=== PATIENT | female | born 1940 | race Two or more races ===

== ENCOUNTER → 2017-04-26 | Outpatient (CLI) | payer MEDICARE, MEDICAID ==
[~2017-04-26] MED LIST: INVANZ IV
== END | disposition home or self-care (01) ==
LOC: Rad HDHVI 12:03
PROVIDERS: ATTEND Internal Medicine Cardiovascular Disease
DX: I08.0 Rheumatic disorders of both mitral and aortic valves (principal)
CPT/HCPCS: 93306

== ENCOUNTER → 2017-04-27 | Outpatient (CLI) | payer MEDICARE, MEDICAID ==
[~2017-04-27] MED LIST changes: +ADENOSINE 69 MG in GIVE UN-DILUTED 0 ML IV ONE; +ADENOSINE 90 MG/30 ML INJ IV ONE
[2017-04-27 13:00] VITALS: BP 169/67
== END | disposition home or self-care (01) ==
LOC: Rad HDHVI 10:34
PROVIDERS: ATTEND Internal Medicine Cardiovascular Disease
DX: I50.43 Acute on chronic combined systolic (congestive) and diastolic (congestive) heart failure (principal); I25.10 Atherosclerotic heart disease of native coronary artery without angina pectoris; I73.9 Peripheral vascular disease, unspecified; R06.02 Shortness of breath; Z95.0 Presence of cardiac pacemaker
CPT/HCPCS: 78452; 93005; 96374; 96375; A9500; G0463; J0153

== ENCOUNTER 2018-03-02 16:22 | Inpatient (IN) | payer MEDICARE, MEDICAID ==
[~2018-03-02] VITALS: Ht 162.6 cm; Wt 82.8 kg
[~2018-03-02 16:22] MED LIST changes: -ADENOSINE 69 MG in GIVE UN-DILUTED 0 ML IV ONE; -ADENOSINE 90 MG/30 ML INJ IV ONE
[2018-03-02 17:15] LABS: Basophils # (auto) 0 uL; Basophils % (auto) 0.6 % (0.0-2.0); Eosinophils # (auto) 0.1 uL; Eosinophils % (auto) 1.8 % (0.0-7.0); Hematocrit 29.4 % (36.0-46.0); Hemoglobin 9.5 g/dL (12.2-16.2); Lymphocytes # (auto) 0.8 uL; Lymphocytes % (auto) 16.7 % (10.0-50.0); Mean Corpuscular Hemoglobin 31.7 pg (28.0-32.0); Mean Corpuscular Hgb Conc. 32.4 g/dL (32.0-36.0); Monocytes # (auto) 0.3 uL; Monocytes % (auto) 7.5 % (0.0-12.0); Neutrophils # (auto) 3.4 uL; Neutrophils % (auto) 73.4 % (37.0-80.0); Platelet Count (auto) 240 10^3/uL (140-450); Red Cell Distribution Width 16.3 % (11.8-14.3); White Blood Cell 4.6 10^3/uL (4.4-10.8)
[2018-03-02 17:32] LABS: Alanine Aminotransferase 20 U/L (13-56); Albumin 2.5 g/dL (3.4-5.0); Alkaline Phosphatase 127 U/L (45-117); Anion Gap 9 (5-15); Aspartate Aminotransferase 17 U/L (15-37); BUN/Creatinine Ratio 14.9; Bilirubin, Total 0.4 mg/dL (0.2-1.0); Calcium 7.2 mg/dL (8.5-10.1); Carbon Dioxide 29 mmol/L (21-32); Chloride 98 mmol/L (98-107); GFR African American 8 mL/min; GFR Non-African American 7 mL/min; Glucose 205 mg/dL (74-106); Potassium 4.3 mmol/L (3.5-5.1); Sodium 136 mmol/L (136-145); Total Protein 7.1 g/dL (6.4-8.2)
[2018-03-02 17:39] LABS: Blood Urea Nitrogen 97 mg/dL (7-18)
[2018-03-02] MEDS ORDERED: ONDANSETRON HCL 4 MG/2 ML VIAL IV PRN (20:45)
[2018-03-02] MEDS ORDERED: HYDROcodone-ACET 5/325MG TAB PO PRN (20:45)
[2018-03-02] MEDS ORDERED: TEMAZEPAM 15 MG CAP PO PRN (20:45)
[2018-03-02] MEDS ORDERED: MORPHINE SULF INJ 2 MG/ML SYRINGE 1ML IV PRN (20:45)
[2018-03-02] MEDS ORDERED: ACETAMINOPHEN 325 MG TAB PO PRN (20:45)
[2018-03-02] MEDS ORDERED: DEXTROSE (50%) 50ML SYRG IV PRN (20:45)
[2018-03-02] MEDS ORDERED: NITROGLYCERIN 0.4 MG SL TAB SL PRN (20:45)
[2018-03-02] MEDS ORDERED: DOCUSATE SOD 100 MG CAP PO PRN (20:45)
[2018-03-02] MEDS: CARVEDILOL 3.125 MG TAB PO SCH (22:00)
[2018-03-02 22:30] VITALS: BP 104/47
[2018-03-03] MEDS: ACCU-CHEK COMFORT CURVE STRIP VI SCH ×4 (00:43→17:21)
[2018-03-03] MEDS ORDERED: B-COTAB10 OR (03:50)
[2018-03-03] MEDS ORDERED: ALLO100T PO (03:50)
[2018-03-03] MEDS ORDERED: LOSA-46 PO (03:50)
[2018-03-03] MEDS ORDERED: LEVO200T7 PO (03:50)
[2018-03-03] MEDS ORDERED: BUME2TAB3 PO (03:50)
[2018-03-03] MEDS ORDERED: CLON0.1T PO (03:50)
[2018-03-03] MEDS ORDERED: SERT-274 PO (03:50)
[2018-03-03] MEDS ORDERED: METO-158 PO (03:50)
[2018-03-03] MEDS ORDERED: INSLISPI SC (03:50)
[2018-03-03] MEDS ORDERED: ACET-1156 PO (03:50)
[2018-03-03] MEDS ORDERED: PANT40TA2 PO (03:50)
[2018-03-03] MEDS ORDERED: AMINLIQ64 PO (03:50)
[2018-03-03 05:11] VITALS: BP 107/41
[2018-03-03] MEDS: InsuLIN REG 1unit/0.01ml Soln (100units/ml) SC SCH ×4 (06:00→17:20)
[2018-03-03] MEDS: BUMETANIDE 1 MG TAB PO SCH ×2 (06:00→17:32)
[2018-03-03] MEDS: LEVOTHYROXINE SODIUM 112 MCG TAB PO SCH (06:17)
[2018-03-03] MEDS: LEVOTHYROXINE SODIUM 25 MCG TAB PO SCH (06:18)
[2018-03-03 06:32] LABS: Basophils # (auto) 0 uL; Basophils % (auto) 0.8 % (0.0-2.0); Eosinophils # (auto) 0.2 uL; Eosinophils % (auto) 4.1 % (0.0-7.0); Hemoglobin 8.8 g/dL (12.2-16.2); Lymphocytes % (auto) 23.7 % (10.0-50.0); Mean Corpuscular Hemoglobin 32.1 pg (28.0-32.0); Mean Corpuscular Hgb Conc. 32.6 g/dL (32.0-36.0); Mean Corpuscular Volume 98.4 fL (80.0-100.0); Monocytes # (auto) 0.3 uL; Monocytes % (auto) 7.5 % (0.0-12.0); Neutrophils # (auto) 2.8 uL; Neutrophils % (auto) 63.9 % (37.0-80.0); Nucleated Red Blood Cells % 0.1 %; Platelet Count (auto) 222 10^3/uL (140-450); Red Blood Cells 2.74 10^6/uL (4.0-5.20); White Blood Cell 4.4 10^3/uL (4.4-10.8)
[2018-03-03 06:57] LABS: Albumin 2.4 g/dL (3.4-5.0); Calcium 7.3 mg/dL (8.5-10.1); Potassium 4.7 mmol/L (3.5-5.1)
[2018-03-03 07:00] LABS: Bilirubin, Total 0.4 mg/dL (0.2-1.0); Total Protein 6.7 g/dL (6.4-8.2)
[2018-03-03 07:37] LABS: BUN/Creatinine Ratio 14.7
[2018-03-03 08:00] VITALS: BP 94/44
[2018-03-03] MEDS: CLOPIDOGREL BISULFATE 75 MG TAB PO SCH (09:34)
[2018-03-03] MEDS: PANTOPRAZOLE 40 MG TAB PO SCH (09:34)
[2018-03-03] MEDS: ALLOPURINOL 100 MG TAB PO SCH (09:34)
[2018-03-03] MEDS: CARVEDILOL 3.125 MG TAB PO SCH ×2 (09:41→22:00)
[2018-03-03] MEDS: ENOXAPARIN SOD 100 MG/1 ML SYRINGE SC SCH (09:41)
[2018-03-03] MEDS: LOSARTAN POTASSIUM 50 MG TAB PO SCH (09:41)
[2018-03-03 13:00] VITALS: BP 95/40
[2018-03-03 16:00] VITALS: BP 96/49
[2018-03-03] MEDS ORDERED: EPOETIN ALFA 10,000 UNIT/1 ML VIAL IV ONE (16:00)
[2018-03-03 17:00] VITALS: BP 100/45
[2018-03-03 22:00] VITALS: BP 105/40
[2018-03-04] MEDS: InsuLIN REG 1unit/0.01ml Soln (100units/ml) SC SCH ×4 (00:35→17:35)
[2018-03-04] MEDS: ACCU-CHEK COMFORT CURVE STRIP VI SCH ×4 (00:35→17:35)
[2018-03-04 04:39] VITALS: BP 101/44
[2018-03-04] MEDS: BUMETANIDE 1 MG TAB PO SCH ×2 (05:59→17:34)
[2018-03-04] MEDS: LEVOTHYROXINE SODIUM 25 MCG TAB PO SCH (06:00)
[2018-03-04] MEDS: LEVOTHYROXINE SODIUM 112 MCG TAB PO SCH (06:00)
[2018-03-04 08:44] VITALS: BP 107/51
[2018-03-04] MEDS: CARVEDILOL 3.125 MG TAB PO SCH ×2 (10:00→21:22)
[2018-03-04] MEDS: ALLOPURINOL 100 MG TAB PO SCH (10:29)
[2018-03-04] MEDS: LOSARTAN POTASSIUM 50 MG TAB PO SCH (10:29)
[2018-03-04] MEDS: PANTOPRAZOLE 40 MG TAB PO SCH (10:29)
[2018-03-04] MEDS: ENOXAPARIN SOD 100 MG/1 ML SYRINGE SC SCH (10:30)
[2018-03-04] MEDS: CLOPIDOGREL BISULFATE 75 MG TAB PO SCH (10:30)
[2018-03-04 12:00] VITALS: BP 94/36
[2018-03-04 16:08] VITALS: BP 109/45
[2018-03-04 21:00] LABS: INR 1.07 (0.9-1.15); Prothrombin Time 11.4 sec (9.27-12.13)
[2018-03-04 21:53] VITALS: BP 101/45
[2018-03-05] MEDS: ACCU-CHEK COMFORT CURVE STRIP VI SCH ×5 (00:06→23:46)
[2018-03-05 04:48] VITALS: BP 98/45
[2018-03-05] MEDS: BUMETANIDE 1 MG TAB PO SCH ×2 (06:18→17:38)
[2018-03-05] MEDS: LEVOTHYROXINE SODIUM 25 MCG TAB PO SCH (06:19)
[2018-03-05] MEDS: InsuLIN REG 1unit/0.01ml Soln (100units/ml) SC SCH ×5 (06:19→23:46)
[2018-03-05] MEDS: LEVOTHYROXINE SODIUM 112 MCG TAB PO SCH (06:19)
[2018-03-05 09:00] VITALS: BP 110/52
[2018-03-05] MEDS: CARVEDILOL 3.125 MG TAB PO SCH ×2 (10:00→21:54)
[2018-03-05] MEDS: ALLOPURINOL 100 MG TAB PO SCH (10:10)
[2018-03-05] MEDS: ENOXAPARIN SOD 100 MG/1 ML SYRINGE SC SCH (10:10)
[2018-03-05] MEDS: PANTOPRAZOLE 40 MG TAB PO SCH (10:10)
[2018-03-05] MEDS: CLOPIDOGREL BISULFATE 75 MG TAB PO SCH (10:10)
[2018-03-05] MEDS: LOSARTAN POTASSIUM 50 MG TAB PO SCH (10:10)
[2018-03-05 13:00] VITALS: BP 111/41
[2018-03-05 17:00] VITALS: BP 115/42
[2018-03-05 20:52] VITALS: BP 118/47
[2018-03-06 05:04] VITALS: BP 113/52
[2018-03-06] MEDS: InsuLIN REG 1unit/0.01ml Soln (100units/ml) SC SCH ×3 (06:00→18:00)
[2018-03-06] MEDS: BUMETANIDE 1 MG TAB PO SCH ×2 (06:08→18:00)
[2018-03-06] MEDS: LEVOTHYROXINE SODIUM 25 MCG TAB PO SCH (06:09)
[2018-03-06] MEDS: LEVOTHYROXINE SODIUM 112 MCG TAB PO SCH (06:09)
[2018-03-06] MEDS: ACCU-CHEK COMFORT CURVE STRIP VI SCH ×3 (06:09→18:14)
[2018-03-06 09:00] VITALS: BP 116/45
[2018-03-06] MEDS: CARVEDILOL 3.125 MG TAB PO SCH ×2 (09:10→22:00)
[2018-03-06] MEDS: ALLOPURINOL 100 MG TAB PO SCH (09:11)
[2018-03-06] MEDS: ENOXAPARIN SOD 100 MG/1 ML SYRINGE SC SCH (09:11)
[2018-03-06] MEDS: PANTOPRAZOLE 40 MG TAB PO SCH (09:11)
[2018-03-06] MEDS: CLOPIDOGREL BISULFATE 75 MG TAB PO SCH (09:11)
[2018-03-06] MEDS: LOSARTAN POTASSIUM 50 MG TAB PO SCH (09:12)
[2018-03-06 13:00] VITALS: BP 99/40
[2018-03-06 17:00] VITALS: BP 104/38
[2018-03-06 22:58] VITALS: BP 108/49
[2018-03-07] MEDS: ACCU-CHEK COMFORT CURVE STRIP VI SCH ×5 (00:48→23:31)
[2018-03-07 04:55] VITALS: BP 110/42
[2018-03-07] MEDS: InsuLIN REG 1unit/0.01ml Soln (100units/ml) SC SCH ×5 (06:00→23:31)
[2018-03-07] MEDS: LEVOTHYROXINE SODIUM 112 MCG TAB PO SCH (07:03)
[2018-03-07] MEDS: LEVOTHYROXINE SODIUM 25 MCG TAB PO SCH (07:03)
[2018-03-07] MEDS: BUMETANIDE 1 MG TAB PO SCH ×2 (07:03→18:41)
[2018-03-07 08:00] VITALS: BP 111/42
[2018-03-07 08:57] VITALS: BP 111/42
[2018-03-07] MEDS: ENOXAPARIN SOD 100 MG/1 ML SYRINGE SC SCH (09:44)
[2018-03-07] MEDS: PANTOPRAZOLE 40 MG TAB PO SCH (09:45)
[2018-03-07] MEDS: CLOPIDOGREL BISULFATE 75 MG TAB PO SCH (09:45)
[2018-03-07] MEDS: LOSARTAN POTASSIUM 50 MG TAB PO SCH (09:45)
[2018-03-07] MEDS: ALLOPURINOL 100 MG TAB PO SCH (09:45)
[2018-03-07] MEDS: CARVEDILOL 3.125 MG TAB PO SCH ×2 (09:45→21:37)
[2018-03-07 12:46] VITALS: BP 115/55
[2018-03-07 17:00] VITALS: BP 126/46
[2018-03-07 22:00] VITALS: BP 107/55
[2018-03-08 04:50] VITALS: BP 119/50
[2018-03-08] MEDS: BUMETANIDE 1 MG TAB PO SCH ×2 (05:46→17:54)
[2018-03-08] MEDS: LEVOTHYROXINE SODIUM 25 MCG TAB PO SCH (05:47)
[2018-03-08] MEDS: LEVOTHYROXINE SODIUM 112 MCG TAB PO SCH (05:47)
[2018-03-08] MEDS: ACCU-CHEK COMFORT CURVE STRIP VI SCH ×3 (05:47→17:58)
[2018-03-08] MEDS: InsuLIN REG 1unit/0.01ml Soln (100units/ml) SC SCH ×3 (05:47→17:58)
[2018-03-08 08:00] VITALS: BP 127/44
[2018-03-08] MEDS ORDERED: ADENOSINE 72 MG in GIVE UN-DILUTED 0 ML IV ONE (09:00)
[2018-03-08] MEDS: LOSARTAN POTASSIUM 50 MG TAB PO SCH (10:00)
[2018-03-08] MEDS: PANTOPRAZOLE 40 MG TAB PO SCH (10:41)
[2018-03-08] MEDS: CARVEDILOL 3.125 MG TAB PO SCH ×2 (10:43→21:31)
[2018-03-08] MEDS: CLOPIDOGREL BISULFATE 75 MG TAB PO SCH (10:44)
[2018-03-08] MEDS: ALLOPURINOL 100 MG TAB PO SCH (10:44)
[2018-03-08] MEDS: ENOXAPARIN SOD 100 MG/1 ML SYRINGE SC SCH (10:45)
[2018-03-08 12:00] VITALS: BP 135/53
[2018-03-08 13:11] VITALS: BP 118/33
[2018-03-08] MEDS ORDERED: EPOETIN ALFA 10,000 UNIT/1 ML VIAL IV ONE (15:45)
[2018-03-08 16:00] VITALS: BP 112/47
[2018-03-08 21:48] VITALS: BP 113/47
[2018-03-09] MEDS: InsuLIN REG 1unit/0.01ml Soln (100units/ml) SC SCH ×4 (00:31→17:26)
[2018-03-09] MEDS: ACCU-CHEK COMFORT CURVE STRIP VI SCH ×4 (00:32→17:26)
[2018-03-09 05:00] VITALS: BP 126/43
[2018-03-09] MEDS: BUMETANIDE 1 MG TAB PO SCH ×2 (05:45→17:28)
[2018-03-09] MEDS: LEVOTHYROXINE SODIUM 25 MCG TAB PO SCH (06:06)
[2018-03-09] MEDS: LEVOTHYROXINE SODIUM 112 MCG TAB PO SCH (06:06)
[2018-03-09 08:30] VITALS: BP 121/42
[2018-03-09] MEDS: LOSARTAN POTASSIUM 50 MG TAB PO SCH (10:00)
[2018-03-09] MEDS: PANTOPRAZOLE 40 MG TAB PO SCH (10:00)
[2018-03-09] MEDS: CARVEDILOL 3.125 MG TAB PO SCH ×2 (10:00→22:00)
[2018-03-09] MEDS: ENOXAPARIN SOD 100 MG/1 ML SYRINGE SC SCH (10:00)
[2018-03-09] MEDS: ALLOPURINOL 100 MG TAB PO SCH (10:00)
[2018-03-09 10:49] LABS: Basophils # (auto) 0 uL; Eosinophils # (auto) 0.1 uL; Hematocrit 24.7 % (36.0-46.0); Monocytes # (auto) 0.4 uL; Red Blood Cells 2.54 10^6/uL (4.0-5.20)
[2018-03-09 10:51] LABS: Basophils % (auto) 0.7 % (0.0-2.0); Eosinophils % (auto) 2.3 % (0.0-7.0); Lymphocytes % (auto) 18.3 % (10.0-50.0); Mean Corpuscular Hemoglobin 30.3 pg (28.0-32.0); Mean Corpuscular Hgb Conc. 31.2 g/dL (32.0-36.0); Mean Corpuscular Volume 97.3 fL (80.0-100.0); Monocytes % (auto) 7.9 % (0.0-12.0); Neutrophils # (auto) 3.8 uL; Neutrophils % (auto) 70.8 % (37.0-80.0); Platelet Count (auto) 329 10^3/uL (140-450); Red Cell Distribution Width 16.2 % (11.8-14.3); White Blood Cell 5.4 10^3/uL (4.4-10.8)
[2018-03-09 10:53] LABS: Hemoglobin 7.8 g/dL (12.2-16.2)
[2018-03-09] MEDS: CLOPIDOGREL BISULFATE 75 MG TAB PO SCH (10:55)
[2018-03-09 11:05] LABS: BUN/Creatinine Ratio 9.9; Calcium 7.6 mg/dL (8.5-10.1); Potassium 3.7 mmol/L (3.5-5.1)
[2018-03-09 17:00] VITALS: BP 108/44
[2018-03-09 22:00] VITALS: BP 138/71
[2018-03-09 22:18] VITALS: BP 107/32
[2018-03-09 23:00] VITALS: BP 107/32
[2018-03-10] VITALS (12 sets, daily range): BP systolic 97–132; BP diastolic 42–63
[2018-03-10] MEDS: ACCU-CHEK COMFORT CURVE STRIP VI SCH ×4 (01:29→18:20)
[2018-03-10 05:44] LABS: Basophils # (auto) 0 uL; Eosinophils # (auto) 0.2 uL; Monocytes # (auto) 0.6 uL; Red Cell Distribution Width 16.6 % (11.8-14.3); White Blood Cell 5.6 10^3/uL (4.4-10.8)
[2018-03-10 05:50] LABS: Basophils % (auto) 0.6 % (0.0-2.0); Eosinophils % (auto) 3.6 % (0.0-7.0); Lymphocytes # (auto) 1.6 uL; Lymphocytes % (auto) 29.4 % (10.0-50.0); Mean Corpuscular Hemoglobin 30.8 pg (28.0-32.0); Mean Corpuscular Hgb Conc. 31.3 g/dL (32.0-36.0); Mean Corpuscular Volume 98.4 fL (80.0-100.0); Monocytes % (auto) 10.3 % (0.0-12.0); Neutrophils # (auto) 3.1 uL; Neutrophils % (auto) 56.1 % (37.0-80.0); Nucleated Red Blood Cells % 0.1 %; Platelet Count (auto) 337 10^3/uL (140-450); Red Blood Cells 2.13 10^6/uL (4.0-5.20)
[2018-03-10 05:58] LABS: Hemoglobin 6.6 g/dL (12.2-16.2)
[2018-03-10] MEDS: BUMETANIDE 1 MG TAB PO SCH ×2 (06:00→18:21)
[2018-03-10] MEDS: InsuLIN REG 1unit/0.01ml Soln (100units/ml) SC SCH ×4 (06:00→18:00)
[2018-03-10] MEDS: LEVOTHYROXINE SODIUM 112 MCG TAB PO SCH (06:33)
[2018-03-10] MEDS: LEVOTHYROXINE SODIUM 25 MCG TAB PO SCH (06:36)
[2018-03-10] MEDS: LOSARTAN POTASSIUM 50 MG TAB PO SCH (10:00)
[2018-03-10] MEDS: ENOXAPARIN SOD 100 MG/1 ML SYRINGE SC SCH (10:00)
[2018-03-10] MEDS: CLOPIDOGREL BISULFATE 75 MG TAB PO SCH (10:00)
[2018-03-10] MEDS: PANTOPRAZOLE 40 MG TAB PO SCH (11:25)
[2018-03-10] MEDS: ALLOPURINOL 100 MG TAB PO SCH (11:26)
[2018-03-10] MEDS: CARVEDILOL 3.125 MG TAB PO SCH ×2 (11:26→21:31)
[2018-03-10] MEDS ORDERED: SODIUM CHL 0.9% 1000 ML BAG XX ONE (17:15)
[2018-03-10] MEDS ORDERED: EPOETIN ALFA 10,000 UNIT/1 ML VIAL IV ONE (17:45)
[2018-03-11] VITALS (8 sets, daily range): BP systolic 101–129; BP diastolic 40–54
[2018-03-11] MEDS: ACCU-CHEK COMFORT CURVE STRIP VI SCH ×5 (00:07→23:29)
[2018-03-11] MEDS: BUMETANIDE 1 MG TAB PO SCH ×2 (06:00→18:08)
[2018-03-11] MEDS: InsuLIN REG 1unit/0.01ml Soln (100units/ml) SC SCH ×5 (06:21→23:34)
[2018-03-11] MEDS: LEVOTHYROXINE SODIUM 112 MCG TAB PO SCH (06:28)
[2018-03-11] MEDS: LEVOTHYROXINE SODIUM 25 MCG TAB PO SCH (06:28)
[2018-03-11 10:26] LABS: Basophils # (auto) 0 uL; Basophils % (auto) 0.4 % (0.0-2.0); Eosinophils # (auto) 0.1 uL; Eosinophils % (auto) 1.1 % (0.0-7.0); Hematocrit 25.4 % (36.0-46.0); Hemoglobin 8.2 g/dL (12.2-16.2); Lymphocytes # (auto) 0.9 uL; Lymphocytes % (auto) 13.8 % (10.0-50.0); Mean Corpuscular Hgb Conc. 32.3 g/dL (32.0-36.0); Monocytes # (auto) 0.4 uL; Monocytes % (auto) 6.8 % (0.0-12.0); Neutrophils % (auto) 77.9 % (37.0-80.0); Platelet Count (auto) 285 10^3/uL (140-450); Red Blood Cells 2.65 10^6/uL (4.0-5.20); Red Cell Distribution Width 16.8 % (11.8-14.3); White Blood Cell 6.5 10^3/uL (4.4-10.8)
[2018-03-11 10:49] LABS: Albumin 2.3 g/dL (3.4-5.0); BUN/Creatinine Ratio 11.5; Bilirubin, Total 0.7 mg/dL (0.2-1.0); Calcium 7.6 mg/dL (8.5-10.1); Potassium 4.2 mmol/L (3.5-5.1); Total Protein 7.1 g/dL (6.4-8.2)
[2018-03-11] MEDS: ALLOPURINOL 100 MG TAB PO SCH (14:42)
[2018-03-11] MEDS: CARVEDILOL 3.125 MG TAB PO SCH ×2 (14:43→22:00)
[2018-03-11] MEDS: ENOXAPARIN SOD 100 MG/1 ML SYRINGE SC SCH (14:43)
[2018-03-11] MEDS: PANTOPRAZOLE 40 MG TAB PO SCH (14:43)
[2018-03-11] MEDS ORDERED: PIPERACILLIN-TAZO 4.5GM 100 ML IV SCH (22:00)
[2018-03-12 05:00] VITALS: BP 122/45
[2018-03-12 05:52] LABS: Basophils # (auto) 0 uL; Basophils % (auto) 0.4 % (0.0-2.0); Eosinophils # (auto) 0.1 uL; Eosinophils % (auto) 1.2 % (0.0-7.0); Hematocrit 30.6 % (36.0-46.0); Hemoglobin 10.1 g/dL (12.2-16.2); Lymphocytes % (auto) 15.4 % (10.0-50.0); Mean Corpuscular Hemoglobin 30.9 pg (28.0-32.0); Mean Corpuscular Volume 93.6 fL (80.0-100.0); Monocytes # (auto) 0.6 uL; Monocytes % (auto) 9.1 % (0.0-12.0); Neutrophils # (auto) 4.8 uL; Neutrophils % (auto) 73.9 % (37.0-80.0); Nucleated Red Blood Cells % 0.1 %; Platelet Count (auto) 307 10^3/uL (140-450); Red Blood Cells 3.26 10^6/uL (4.0-5.20); Red Cell Distribution Width 17.6 % (11.8-14.3); White Blood Cell 6.6 10^3/uL (4.4-10.8)
[2018-03-12] MEDS: InsuLIN REG 1unit/0.01ml Soln (100units/ml) SC SCH ×4 (06:00→22:11)
[2018-03-12] MEDS ORDERED: FUROSEMIDE 40 MG/4 ML VIAL IV SCH (06:00)
[2018-03-12 06:10] LABS: Albumin 2.5 g/dL (3.4-5.0); BUN/Creatinine Ratio 10.8; Bilirubin, Total 1.1 mg/dL (0.2-1.0); Calcium 7.4 mg/dL (8.5-10.1); Potassium 3.3 mmol/L (3.5-5.1); Total Protein 7.8 g/dL (6.4-8.2)
[2018-03-12] MEDS: BUMETANIDE 1 MG TAB PO SCH ×2 (06:17→17:24)
[2018-03-12] MEDS: ACCU-CHEK COMFORT CURVE STRIP VI SCH ×4 (06:17→22:12)
[2018-03-12] MEDS: LEVOTHYROXINE SODIUM 112 MCG TAB PO SCH (06:18)
[2018-03-12] MEDS: LEVOTHYROXINE SODIUM 25 MCG TAB PO SCH (06:30)
[2018-03-12 08:00] VITALS: BP 121/52
[2018-03-12 09:00] VITALS: BP 121/52
[2018-03-12] MEDS: ALLOPURINOL 100 MG TAB PO SCH (10:00)
[2018-03-12] MEDS: PANTOPRAZOLE 40 MG TAB PO SCH (10:00)
[2018-03-12] MEDS: ENOXAPARIN SOD 100 MG/1 ML SYRINGE SC SCH (10:00)
[2018-03-12] MEDS: CARVEDILOL 3.125 MG TAB PO SCH ×2 (10:01→22:00)
[2018-03-12 13:00] VITALS: BP 100/36
[2018-03-12] MEDS ORDERED: POTASSIUM CHL 20 Meq TABLET PO ONE (16:00)
[2018-03-12 17:00] VITALS: BP 112/41
[2018-03-12 22:00] VITALS: BP 108/40
[2018-03-13 05:00] VITALS: BP 103/44
[2018-03-13] MEDS: BUMETANIDE 1 MG TAB PO SCH ×2 (06:00→18:00)
[2018-03-13] MEDS: InsuLIN REG 1unit/0.01ml Soln (100units/ml) SC SCH ×4 (06:00→23:43)
[2018-03-13 06:07] LABS: Basophils # (auto) 0 uL; Basophils % (auto) 0.5 % (0.0-2.0); Eosinophils # (auto) 0.1 uL; Eosinophils % (auto) 2.3 % (0.0-7.0); Hematocrit 30.8 % (36.0-46.0); Hemoglobin 9.9 g/dL (12.2-16.2); Lymphocytes # (auto) 0.8 uL; Lymphocytes % (auto) 15.5 % (10.0-50.0); Mean Corpuscular Hemoglobin 30.5 pg (28.0-32.0); Mean Corpuscular Hgb Conc. 32.3 g/dL (32.0-36.0); Mean Corpuscular Volume 94.5 fL (80.0-100.0); Monocytes # (auto) 0.5 uL; Monocytes % (auto) 9.8 % (0.0-12.0); Neutrophils # (auto) 3.9 uL; Neutrophils % (auto) 71.9 % (37.0-80.0); Nucleated Red Blood Cells % 0.1 %; Platelet Count (auto) 319 10^3/uL (140-450); Red Blood Cells 3.26 10^6/uL (4.0-5.20); Red Cell Distribution Width 17.9 % (11.8-14.3); White Blood Cell 5.4 10^3/uL (4.4-10.8)
[2018-03-13 06:18] LABS: Albumin 2.4 g/dL (3.4-5.0); Calcium 8.1 mg/dL (8.5-10.1); Potassium 3.9 mmol/L (3.5-5.1)
[2018-03-13 06:21] LABS: BUN/Creatinine Ratio 10.2
[2018-03-13 06:23] LABS: Total Protein 7.6 g/dL (6.4-8.2)
[2018-03-13] MEDS: LEVOTHYROXINE SODIUM 112 MCG TAB PO SCH (06:25)
[2018-03-13] MEDS: ACCU-CHEK COMFORT CURVE STRIP VI SCH ×4 (06:27→23:43)
[2018-03-13] MEDS: LEVOTHYROXINE SODIUM 25 MCG TAB PO SCH (06:27)
[2018-03-13 08:00] VITALS: BP 111/41
[2018-03-13 09:00] VITALS: BP 111/41
[2018-03-13] MEDS ORDERED: ENOXAPARIN SOD 80 MG/0.8ML SYRINGE SC SCH (10:00)
[2018-03-13] MEDS: ALLOPURINOL 100 MG TAB PO SCH (10:03)
[2018-03-13] MEDS: PANTOPRAZOLE 40 MG TAB PO SCH (10:04)
[2018-03-13] MEDS: CARVEDILOL 3.125 MG TAB PO SCH ×2 (10:04→21:16)
[2018-03-13 13:00] VITALS: BP 100/38
[2018-03-13 17:00] VITALS: BP 118/40
[2018-03-13 21:49] VITALS: BP 104/47
[2018-03-14 04:48] VITALS: BP 114/42
[2018-03-14] MEDS: InsuLIN REG 1unit/0.01ml Soln (100units/ml) SC SCH ×4 (06:00→23:00)
[2018-03-14] MEDS: BUMETANIDE 1 MG TAB PO SCH ×2 (06:32→17:53)
[2018-03-14] MEDS: LEVOTHYROXINE SODIUM 112 MCG TAB PO SCH (06:33)
[2018-03-14] MEDS: LEVOTHYROXINE SODIUM 25 MCG TAB PO SCH (06:33)
[2018-03-14] MEDS: ACCU-CHEK COMFORT CURVE STRIP VI SCH ×4 (06:33→23:06)
[2018-03-14 08:00] VITALS: BP 125/51
[2018-03-14 08:46] LABS: Basophils # (auto) 0 uL; Basophils % (auto) 0.5 % (0.0-2.0); Eosinophils # (auto) 0.1 uL; Eosinophils % (auto) 1.6 % (0.0-7.0); Hemoglobin 9.8 g/dL (12.2-16.2); Lymphocytes % (auto) 15.5 % (10.0-50.0); Mean Corpuscular Hemoglobin 30.9 pg (28.0-32.0); Mean Corpuscular Hgb Conc. 32.7 g/dL (32.0-36.0); Mean Corpuscular Volume 94.6 fL (80.0-100.0); Monocytes # (auto) 0.6 uL; Monocytes % (auto) 10.2 % (0.0-12.0); Neutrophils # (auto) 4.5 uL; Neutrophils % (auto) 72.2 % (37.0-80.0); Platelet Count (auto) 333 10^3/uL (140-450); Red Blood Cells 3.17 10^6/uL (4.0-5.20); Red Cell Distribution Width 17.6 % (11.8-14.3); White Blood Cell 6.2 10^3/uL (4.4-10.8)
[2018-03-14] MEDS: PANTOPRAZOLE 40 MG TAB PO SCH (09:01)
[2018-03-14] MEDS: ALLOPURINOL 100 MG TAB PO SCH (09:01)
[2018-03-14] MEDS: CARVEDILOL 3.125 MG TAB PO SCH ×2 (09:02→21:56)
[2018-03-14 09:05] LABS: Albumin 2.5 g/dL (3.4-5.0); BUN/Creatinine Ratio 10.6; Calcium 7.9 mg/dL (8.5-10.1); Potassium 3.8 mmol/L (3.5-5.1)
[2018-03-14 09:07] LABS: Bilirubin, Total 0.8 mg/dL (0.2-1.0); Total Protein 7.7 g/dL (6.4-8.2)
[2018-03-14 12:00] VITALS: BP 111/41
[2018-03-14 16:00] VITALS: BP 117/49
[2018-03-14] MEDS ORDERED: EPOETIN ALFA 10,000 UNIT/1 ML VIAL IV ONE (17:00)
[2018-03-14] MEDS ORDERED: SODIUM CHL 0.9% 1000 ML BAG XX ONE (17:00)
[2018-03-14 21:29] VITALS: BP 107/41
[2018-03-14] MEDS: APIXABAN 5 MG TAB PO SCH (21:55)
[2018-03-15 05:06] VITALS: BP 110/41
[2018-03-15] MEDS: InsuLIN REG 1unit/0.01ml Soln (100units/ml) SC SCH ×2 (06:00→11:53)
[2018-03-15] MEDS: BUMETANIDE 1 MG TAB PO SCH (06:27)
[2018-03-15] MEDS: ACCU-CHEK COMFORT CURVE STRIP VI SCH ×2 (06:28→11:53)
[2018-03-15] MEDS: LEVOTHYROXINE SODIUM 112 MCG TAB PO SCH (06:28)
[2018-03-15] MEDS: LEVOTHYROXINE SODIUM 25 MCG TAB PO SCH (06:28)
[2018-03-15 08:00] VITALS: BP 130/56
[2018-03-15] MEDS: APIXABAN 5 MG TAB PO SCH (09:31)
[2018-03-15] MEDS: PANTOPRAZOLE 40 MG TAB PO SCH (09:31)
[2018-03-15] MEDS: CARVEDILOL 3.125 MG TAB PO SCH (09:31)
[2018-03-15] MEDS: ALLOPURINOL 100 MG TAB PO SCH (09:31)
[2018-03-15 12:00] VITALS: BP 111/52
[2018-03-15 14:33] VITALS: BP 111/62
== END 2018-03-15 16:00 | DRG 291 ==
LOC: EDBD 16:22 → ER 16:28 → OVERFLOW 16:29 → CENTRAL 21:49
PROVIDERS: ADMIT Nurse Practitioner; ATTEND Family Medicine
PROC: 5A1D70Z Performance of Urinary Filtration, Intermittent, Less than 6 Hours Per Day (ICD-10-PCS; 2018-03-03)
PROC: 5A1D70Z Performance of Urinary Filtration, Intermittent, Less than 6 Hours Per Day (ICD-10-PCS; 2018-03-08)
PROC: 30233N1 Transfusion of Nonautologous Red Blood Cells into Peripheral Vein, Percutaneous Approach (ICD-10-PCS; principal; 2018-03-10)
PROC: 5A1D70Z Performance of Urinary Filtration, Intermittent, Less than 6 Hours Per Day (ICD-10-PCS; 2018-03-11)
PROC: 5A1D70Z Performance of Urinary Filtration, Intermittent, Less than 6 Hours Per Day (ICD-10-PCS; 2018-03-15)
DX: I13.2 Hypertensive heart and chronic kidney disease with heart failure and with stage 5 chronic kidney disease, or end stage renal disease (principal); N18.6 End stage renal disease; I82.411 Acute embolism and thrombosis of right femoral vein; D63.8 Anemia in other chronic diseases classified elsewhere; E11.22 Type 2 diabetes mellitus with diabetic chronic kidney disease; E66.9 Obesity, unspecified; I25.10 Atherosclerotic heart disease of native coronary artery without angina pectoris; I50.9 Heart failure, unspecified; Z99.2 Dependence on renal dialysis; E03.9 Hypothyroidism, unspecified; E11.40 Type 2 diabetes mellitus with diabetic neuropathy, unspecified; F41.9 Anxiety disorder, unspecified; E78.5 Hyperlipidemia, unspecified; M10.9 Gout, unspecified; Z87.440 Personal history of urinary (tract) infections; Z79.01 Long term (current) use of anticoagulants; E21.3 Hyperparathyroidism, unspecified; F32.9 Major depressive disorder, single episode, unspecified; Z68.31 Body mass index [BMI] 31.0-31.9, adult
CPT/HCPCS: 36415; 71045; 78452; 78582; 80048; 80053; 82270; 82962; 84484; 85025; 85610; 86850; 86900; 86901; 86920; 87081; 90935; 93005; 93017; 93886; 93971; 96372; 97163; J0153; J0885; J1815